=== PATIENT | female | born 1985 | race African-American/Black ===

== ENCOUNTER 2021-03-20 21:24 | Observation (INO) | payer SELFPAY ==
[~2021-03-20] VITALS: Ht 162.6 cm; Wt 84.4 kg
[2021-03-21 00:13] LABS: Urine Bacteria NONE SEEN /hpf (None Seen); Urine Blood Negative /uL (Negative); Urine Mucus FEW (None Seen); Urine Specific Gravity 1.038 (1.001-1.035); Urine WBC 5 /hpf (0 - 5)
[2021-03-21] MEDS ORDERED: TERBUTALINE SULFATE 1 MG/ML 1ML VIAL SC PRN (00:15)
[2021-03-21] MEDS ORDERED: LACTATED RINGER'S 1,000 ML IV SCH (00:15)
[2021-03-21] MEDS ORDERED: LACTATED RINGER'S 1,000 ML IV ONE (00:15)
[2021-03-21] MEDS ORDERED: TERBUTALINE SULFATE 1 MG/ML 1ML VIAL SC ONE (00:21)
[2021-03-21] MEDS ORDERED: PREN-96 PO (02:44)
[2021-03-21] MEDS ORDERED: METR500T PO (03:00)
[2021-03-21 03:16] LABS: Amphetamine Screen, Urine NEGATIVE (NEGATIVE); Barbiturate Scree,Urine NEGATIVE (NEGATIVE); Benzodiazephine Screen, Urine NEGATIVE (NEGATIVE); Cannabinoid Screen, Urine NEGATIVE (NEGATIVE); Cocaine Screen, Urine NEGATIVE (NEGATIVE); Opiate Scree,Urine NEGATIVE (NEGATIVE); Phencyclidine Screen, Urine NEGATIVE (NEGATIVE)
== END 2021-03-21 03:47 | disposition home or self-care (01) ==
LOC: UNDOADMOB 21:24 → LDRP 21:24
PROVIDERS: ADMIT Obstetrics & Gynecology; ATTEND Obstetrics & Gynecology
DX: O60.03 Preterm labor without delivery, third trimester (principal); O23.593 Infection of other part of genital tract in pregnancy, third trimester; O62.9 Abnormality of forces of labor, unspecified; Z3A.33 33 weeks gestation of pregnancy; Z86.32 Personal history of gestational diabetes; Z87.440 Personal history of urinary (tract) infections; Z79.899 Other long term (current) drug therapy
CPT/HCPCS: 59025; 76805; 76817; 80307; 81001; 81002; 82962; 87210; 96360; 96361; 96372; G0378; J3105

== ENCOUNTER 2022-03-19 10:09 | Emergency (ER) | payer SELFPAY ==
[~2022-03-19] VITALS: Ht 154.9 cm; Wt 125.3 kg
[~2022-03-19 10:09] MED LIST: METR500T PO; PREN-96 PO
[2022-03-19 11:16] LABS: Basophils # (auto) 0 10 ^3/uL (0-0.2); Basophils % (auto) 0.4 % (0.0-2.0); Eosinophils # (auto) 0 10 ^3/uL (0-0.8); Eosinophils % (auto) 0.6 % (0.0-7.0); Hemoglobin 13.4 g/dL (13.5-17.5); Lymphocytes # (auto) 0.8 10 ^3/uL (0.4-5.4); Lymphocytes % (auto) 9.9 % (10.0-50.0); Mean Corpuscular Hemoglobin 27.5 pg (28.0-32.0); Monocytes # (auto) 0.3 10 ^3/uL (0-1.3); Monocytes % (auto) 4.3 % (0.0-12.0); Neutrophils # (auto) 6.8 10 ^3/uL (1.6-8.6); Neutrophils % (auto) 84.8 % (37.0-80.0); Red Blood Cells 4.88 10^6/uL (4.5-5.90); Red Cell Distribution Width 14.6 % (11.8-14.3)
[2022-03-19 11:51] LABS: Albumin 3.6 g/dL (3.4-5.0); BUN/Creatinine Ratio 10.5; Calcium 9.4 mg/dL (8.5-10.1); Potassium 3.8 mmol/L (3.5-5.1)
[2022-03-19 11:56] LABS: Bilirubin, Total 0.6 mg/dL (0.2-1.0); Total Protein 7.4 g/dL (6.4-8.2)
[2022-03-19] MEDS ORDERED: METR500T PO (15:59)
[2022-03-19] MEDS ORDERED: CEPH-510 PO (15:59)
[2022-03-19 17:48] VITALS: BP 154/82
== END 2022-03-19 17:34 | disposition home or self-care (01) ==
LOC: EDSEX 10:09 → ER 10:09
DX: K52.9 Noninfective gastroenteritis and colitis, unspecified (principal); Z98.51 Tubal ligation status
CPT/HCPCS: 36415; 74176; 80053; 83690; 84484; 85025